=== PATIENT | male | born 1955 | race Caucasian/White ===

== ENCOUNTER 2021-12-02 05:18 | Emergency (ER) | payer BC, MEDICARE ==
[~2021-12-02] VITALS: Ht 190.5 cm; Wt 96.2 kg
[2021-12-02 05:41] LABS: BASOPHILS % (AUTO) 0.2 % (0.0-5.0); HEMATOCRIT 41.2 % (42-54); LYMPHOCYTES % (AUTO) 10.1 % (21.0-51.0); MEAN CORPUSCULAR HEMOGLOBIN 30.8 pg (27.0-33.0); MEAN CORPUSCULAR HGB CONC 33.7 g/dL (32.0-36.0); MEAN CORPUSCULAR VOLUME 91.4 fL (79-99); MONOCYTES % (AUTO) 3.4 % (3.0-13.0); NEUTROPHILS % (AUTO) 86.1 % (40.0-77.0); PLATELET COUNT (AUTO) 232 K/uL (130-400); RED BLOOD CELL COUNT(AUTO) 4.51 MIL/uL (4.50-6.20); RED CELL DISTRIBUTION WIDTH 12.1 % (11.0-15.5); WHITE BLOOD COUNT (AUTO) 4.4 K/uL (4.8-10.8)
[2021-12-02 05:51] LABS: CREATININE 0.9 mg/dL (0.5-1.5); POTASSIUM 3.7 mmol/L (3.5-5.1)
[2021-12-02 05:56] LABS: ALBUMIN 3.4 g/dL (3.5-5.0)
[2021-12-02] MEDS ORDERED: 0.9%NACL 1000ML 1,000 ML IV SCH ×2 (06:00→07:00)
[2021-12-02] MEDS ORDERED: ONDANSETRON 4MG INJ IV ONE (06:00)
[2021-12-02] MEDS ORDERED: ONDA4TAB10 PO (06:48)
[2021-12-02 07:33] VITALS: BP 126/68
== END 2021-12-02 07:34 | disposition home or self-care (01) ==
LOC: EDH 05:18
DX: U07.1 COVID-19 (principal); T37.5X5A Adverse effect of antiviral drugs, initial encounter; R11.10 Vomiting, unspecified; Y92.89 Other specified places as the place of occurrence of the external cause
CPT/HCPCS: 99283; 96374; 96361; 80053; 85025; 36415; J7030 ×2; J2405